=== PATIENT | male | born 1990 | race Two or more races ===

== ENCOUNTER 2020-10-12 08:55 | Emergency (ER) | payer OTHER, SELFPAY ==
--- NOTE | ~2020-10-12 | XR_ITS ---
EXAMINATION: XR CHEST CLINICAL INFORMATION: Covid positive COMPARISON: None TECHNIQUE: Frontal view of the chest was obtained. FINDINGS: No significant abnormality is noted involving the heart, lungs, mediastinum, bony thorax or soft tissues. XR/XR chest 1V IMPRESSION: Unremarkable examination.
[2020-10-12 09:10] VITALS: BP 146/94; PULSE 97; RESP 18; TEMP 36.6; O2SAT 97; BMI 35.7
--- NOTE | 2020-10-12 09:50 | ED_ITS ---
HPI - URI/Sore Throat General Chief Complaint: Upper Respiratory Symptoms Stated Complaint: covid + cough, wheezing Time Seen by Provider: 10/12/20 09:17 Source: patient Mode of arrival: ambulatory History of Present Illness HPI Narrative: 30-year-old male COVID-19 positive on Wednesday10/09/2020 presenting to the ED complaining of persistent productive cough, chest congestion, mild SOB and chest discomfort when coughing x a few days. Admits symptoms feels similar to prior bronchitis/pneumonia in the past. Denies fever, chills, LE edema, recent travel, history of blood clots, cigarette smoking MD elicited complaint: cough Related Data Previous Rx's Medication Instructions Recorded albuterol sulfate 2 puff INHALATION Q4-6H PRN #6.7 g 10/12/20 azithromycin See Rx Instructions .ROUTE 10/12/20 .COMPLEX #6 tab benzonatate [Tessalon Perles] 100 mg PO TID PRN #14 cap 10/12/20 Allergies Allergy/AdvReac Type Severity Reaction Status Date / Time No Known Allergies Allergy Unverified 04/04/20 16:03 Review of Systems Review of Systems: Constitutional: No Fever, No Chills ENT/Mouth: No Ear Pain, No Nasal Congestion, No sore throat, No Rhinorrhea Cardiovascular: + Chest Pain when coughing, +SOB when coughing Respiratory: + Cough, + Sputum, + Wheezing Gastrointestinal: No Nausea, No Vomiting, No Abdominal pain Musculoskeletal: No joint pain, No Myalgias Skin: No Skin Lesions, No rash Yes all other systems are reviewed and are negative [facility] Past Medical History Attestation statement: The following information was validated with the patient. Social History Social History Advance Directives: No Advance Directives Information Provided: Yes Physical Exam Vital Signs: Vital Signs: Last Vital Signs Temp 98 F 10/12/20 09:10 Pulse 97 10/12/20 09:10 Resp 18 10/12/20 09:10 BP 146/94 H 10/12/20 09:10 Pulse Ox 97 10/12/20 09:10 Body Mass Index 35.7 Const: General: cooperative, healthy appearing, comfortable, no acute distress, well developed, alert and awake Orientation/consciousness: patient oriented x3 Limitations: no limitations HENMT: Head: Yes normal to inspection Ears: hearing grossly normal bilat erally General nose exam: Normal external nose present Face and sinus: Yes normal facial exam Eyes: General: appearance normal, both eyes and all related structures EOM: EOMs intact bilaterally Neck: Neck: Yes normal visual inspection and Yes no meningeal signs Resp: Effort & Inspection: normal respiratory effort Auscultation: clear to auscultation bilaterally, no crackles, no rhonchi and no wheezes Cardio: Rate: regular rate Heart sounds: S1 normal heart sound present and S2 normal heart sound present Skin: Rashes: no rashes Wounds: no wounds Neuro: General: patient oriented x3 and no meningeal signs Gait exam (Neuro): Normal gait present Extrem: General: Yes normal to inspection, Yes no pedal edema and Yes no calf tenderness Course Course Course Narrative: XR chest 1V IMPRESSION: Unremarkable examination MDM - URI/Sore Throat MDM Narrative Medical decision making narrative: 30-year-old male COVID-19 positive on Wednesday10/09/2020 presenting to the ED complaining of persistent productive cough, chest congestion, mild SOB and chest discomfort when coughing x a few days. On exam VSS, NAD/well-appearing, lungs CTA, no LE edema or calf tenderness. Concern for COVID-19 symptoms. Rule out pneumonia/COVID pneumonia. Low concern for PE/ACS Plan: CXR Discharge Plan Discharge Clinical Impression: COVID-19 Patient Disposition: Home, Self-Care Instructions: COVID-19 (Coronavirus Disease 2019) (ED) Additional Instructions: Your chest x-ray was unremarkable today in the ED Azithromax in as an antibiotic, take as prescribed Tessalon Perles for cough, take as needed Use albuterol inhaler for wheezing/shortness of breath Call your doctor for follow-up, however continue to self isolate for 14 days If you develop constant worsening chest pain, shortness of breath, fever unres olved Tylenol or Motrin return to the ED Prescriptions: New albuterol sulfate 90 mcg/actuation HFA aerosol inhaler 2 puff inhalation Q4-6H PRN (Reason: shortness of breath or wheezing) Qty: 6.7 RF: 0 azithromycin 250 mg tablet See Rx Instructions .ROUTE .COMPLEX Qty: 6 RF: 0 benzonatate [Tessalon Perles] 100 mg capsule 100 mg PO TID PRN (Reason: cough) Qty: 14 RF: 0 Referrals: Abram Forman MD [Primary Care Provider] - 5 days (call)
== END 2020-10-12 10:37 | disposition home or self-care (01) ==
PROVIDERS: Emergency Provider Emergency Medicine; PCP Internal Medicine
DX: U07.1 COVID-19 (principal)
CPT/HCPCS: 71045; 99282; 99283

== ENCOUNTER 2024-11-30 00:03 | Emergency (ER) | payer OTHER, SELFPAY ==
[2024-11-30 00:05] VITALS: BP 137/100; PULSE 108; RESP 20; TEMP 36.5; O2SAT 96; BMI 35.0
[2024-11-30 00:12] VITALS: BP 125/82; PULSE 99; RESP 16; TEMP 36.7; O2SAT 97; BMI 34.0
[2024-11-30 00:17] VITALS: BP 125/82; PULSE 99; RESP 16; TEMP 36.7; O2SAT 97
[2024-11-30] MEDS: Lidocaine HCl 1 % MPF 5 ML VIAL SUBCUT (00:34)
--- NOTE | 2024-11-30 00:46 | ED.GENADULT ---
HPI - General Adult General Chief complaint: General Medical Stated complaint: right thumb infected? Time Seen by Provider: 11/30/24 00:24 Source: patient Mode of arrival: ambulatory Limitations: no limitations History of Present Illness ED Provider: DR. Saldaña HPI narrative: 34-year-old male [employer] [id number] came in for evaluation of infection in his left thumb for the past 2 weeks with pain and swelling, patient also been having runny nose, sneezing, coughing, feeling nauseous, sore throat, and diarrhea. Related Data Previous Rx's ?Medication ?Instructions ?Recorded albuterol sulfate 90 mcg/actuation 2 puff inhalation Q4-6H PRN 10/12/20 aerosol inhaler shortness of breath or wheezing #6.7 grams azithromycin 250 mg tablet See Rx Instructions PO .COMPLEX #6 10/12/20 tabs benzonatate 100 mg capsule 100 mg PO TID PRN cough #14 caps 10/12/20 (Tessalon Perlavril) doxycycline hyclate 100 mg tablet 100 mg PO BID #14 tabs 11/30/24 Allergies Allergy/AdvReac Type Severity Reaction Status Date / Time Penicillins Allergy Unknown Abdominal Verified 11/30/24 00:17 Pain Review of Systems Review of Systems: All other systems are reviewed and are negative Constitutional: Reports as per HPI and Reports no additional constitutional complaints Eyes: Reports as per HPI and Reports no additional eye complaints Reports system reviewed and no additional complaints, except as documented Cardiovascular: Reports as per HPI and Reports no additional cardiovascular complaints Respiratory: Reports as per HPI and Reports no additional respiratory complaints Gastrointestinal: Reports as per HPI and Reports no additional gastrointestinal complaints Genitourinary: Reports no additional female genitourinary complaints Musculoskeletal: Reports no additional musculoskeletal complaints Skin/Breast: Reports system reviewed and no additional complaints, except as docu Psychiatric: Reports no additional psychiatric complaints Endocrine: Reports no additional endocrine complaints Hematologic/Lymphatic: Reports no additional hematologic/lymphatic complaints Allergic/Immunologic: Reports no additional allergic/immunologic complaints Reports system reviewed and no additional complaints, except as documented and Reports Abnormal speech present ON LICENSE OF [facility] Social History Social History Smoked in Last 30 Days: No Use of substances other than those prescribed or required for medical reasons: No Physical Exam ED Vital Signs: Vital Signs - 24 hr 11/30/24 00:05 11/30/24 00:12 11/30/24 00:17 Temperature 97.7 F 98.1 F 98.1 F Pulse Rate 108 H 99 99 Respiratory Rate 20 16 16 Blood Pressure 137/100 H 125/82 125/82 Pulse Oximetry 96 97 97 Oxygen Delivery Method Room Air Room Air Room Air BMI result Body Mass Index 34.0 Vital signs have been reviewed and appear to be correct. Blood pressure elevated. Heart rate normal. Respiratory rate normal. Temperature normal. Oxygen saturation normal. Appearance: Alert. Oriented X3. No acute distress. Head: Normal external exam. Normocephalic. Atraumatic. No Michelle signs noted. No raccoon eyes noted Eyes: PERRLA. EOMI. Conjunctiva and sclera normal. Eyelids normal. ENT: TM's Normal. Pharynx normal. Uvula midline. Moist mucous membranes. No trismus noted. No drooling noted. No muffled voice noted. Neck: Normal inspection. Neck supple. FROM. No adenopathy. Thyroid Normal. No meningeal signs. No neck mass noted. CVS: Normal heart rate and rhythm. Heart sound normal. No murmurs noted. Pulses normal throughout. Respiratory: No respiratory distress. Painless inspiration. Breath sounds normal. No wheezes/rales/rhonchi noted. Chest nontender. No accessory muscle usage noted or decreased air movement noted. Abdomen: Soft and nontender. Bowel sounds normal in all 4 quadrants. No distention noted. No organomegaly noted. No visible injury noted. Back: No CVA tenderness. Full range of motion noted. Skin: Skin warm and dry. Normal skin color. Normal skin turgor. No rashes/lesions/lacerations noted. Extremities: Left hand: Paronychia of the left thumb with swelling, tenderness, fluctuation at the nail bed. Neuro: Oriented X 3. Cranial nerve exam: II-XII are grossly intact No motor deficit. No sensory deficit. Reflexes normal. Course Reevaluation(s) Reevaluation #1: Left thumb paronychia with abscess. S/p I and D. Will start on doxycycline Time: 00:49 Medications Administered Discontinued Medications Generic Name Dose Route Start Last Admin Trade Name Freq PRN Reason Stop Dose Admin Lidocaine HCl 5 ml 11/30/24 00:30 11/30/24 00:34 Lidocaine Hcl 1 % Mpf 5 Ml Vial SUBCUT 11/30/24 00:31 5 ml ONCE ONE Administration Procedures Abscess I/D Site: hand (Left thumb) Side (if applicable): left Local Anesthetic: lidocaine 1% Amount of anesthesia used (mL): 5 Technique: incised with blade Amount of fluid expressed (mL): 2 Sent for culture/gram staining?: No Irrigation: No Packing used?: none Medical Decision Making Differential Diagnosis Differential Diagnoses: The differential diagnosis associated with the presentation includes (Left thumb paronychia, abscess, viral syndrome.) Admission/Observation Consideration of admission/observation: Escalation of care including admission/observation considered Lab Data MDM Lab Attestation statement: I reviewed the patient's lab results. Discharge Plan Discharge Clinical Impression: Paronychia of finger of left hand, Acute viral syndrome Patient Disposition: Home, Self-Care Instructions: Paronychia (ED) Prescriptions: New doxycycline hyclate 100 mg tablet 100 mg PO BID Qty: 14 0RF No Action albuterol sulfate 90 mcg/actuation HFA aerosol inhaler 2 puff inhalation Q4-6H PRN (Reason: shortness of breath or wheezing) Qty: 6.7 0RF azithromycin 250 mg tablet See Rx Instructions .ROUTE .COMPLEX Qty: 6 0RF Rx Instructions: take 500 mg today (day 1), then 250 mg for 4 days (days 2-5) benzonatate [Tessalon Perles] 100 mg capsule 100 mg PO TID PRN (Reason: cough) Qty: 14 0RF Print Language: Moroccan
[2024-11-30 01:26] LABS: Influenza A PCR NEGATIVE (Negative); Influenza B PCR NEGATIVE (Negative); Resp Syncy Virus RNA Qual PCR NEGATIVE (Negative); SARS COV2 PCR INHOUSE NEGATIVE (Negative)
[2024-11-30] MEDS: Doxycycline Monohydrate 100 MG CAPSULE PO (01:33)
[2024-11-30 02:25] VITALS: BP 125/82; PULSE 99; RESP 16; TEMP 36.7; O2SAT 97
== END 2024-11-30 02:55 | disposition home or self-care (01) ==
PROVIDERS: Emergency Provider Emergency Medicine
DX: L03.012 Cellulitis of left finger (principal); B34.9 Viral infection, unspecified; M79.645 Pain in left finger(s); R05.9 Cough, unspecified; J02.9 Acute pharyngitis, unspecified; R19.7 Diarrhea, unspecified; Z03.818 Encounter for observation for suspected exposure to other biological agents ruled out
CPT/HCPCS: 0241U; 10060; 99284; J2003